=== PATIENT | female | born 1945 | race Two or more races ===

== ENCOUNTER 2019-01-28 09:56 | Outpatient (CLI) | payer OTHER | END 2019-01-28 10:00 | disposition home or self-care (01) | LOC: RAD 09:56 | DX: M54.5 Low back pain (principal) ==

== ENCOUNTER → 2019-01-28 | Outpatient (CLI) | payer OTHER ==
[~2019-01-28] MED LIST: KEFLEX500 MG PO
== END | disposition home or self-care (01) ==
LOC: NUCLEAR 11:00
DX: I87.2 Venous insufficiency (chronic) (peripheral) (principal); I73.9 Peripheral vascular disease, unspecified